=== PATIENT | female | born 1985 | race Caucasian/White ===

== ENCOUNTER → 2019-01-22 | Outpatient (CLI) | payer BC, OTHER | END | disposition home or self-care (01) | LOC: LABWHC1 15:24 | PROVIDERS: ATTEND Obstetrics & Gynecology | DX: O26.819 Pregnancy related exhaustion and fatigue, unspecified trimester (principal); Z3A.00 Weeks of gestation of pregnancy not specified | CPT/HCPCS: 36415; 84702 ==

== ENCOUNTER → 2019-01-26 | Outpatient (CLI) | payer BC, OTHER | LOC: LABWHC1 15:50 | PROVIDERS: ATTEND Obstetrics & Gynecology | DX: O26.819 Pregnancy related exhaustion and fatigue, unspecified trimester (principal); Z3A.00 Weeks of gestation of pregnancy not specified | CPT/HCPCS: 36415; 84702 ==

== ENCOUNTER → 2019-02-03 | Outpatient (CLI) | payer BC, OTHER | LOC: LABWHC1 11:49 | PROVIDERS: ATTEND Obstetrics & Gynecology | DX: O03.9 Complete or unspecified spontaneous abortion without complication (principal); R53.83 Other fatigue | CPT/HCPCS: 36415; 84702 ==

== ENCOUNTER → 2019-11-27 | Outpatient (CLI) | payer BC, OTHER | END | disposition home or self-care (01) | LOC: LABWHC1 07:45 | PROVIDERS: ATTEND Obstetrics & Gynecology | DX: O20.0 Threatened abortion (principal) | CPT/HCPCS: 36415; 84702 ==

== ENCOUNTER → 2019-12-03 | Outpatient (CLI) | payer BC, OTHER | END | disposition home or self-care (01) | LOC: LABWHC1 17:04 | PROVIDERS: ATTEND Obstetrics & Gynecology | DX: O02.1 Missed abortion (principal) | CPT/HCPCS: 36415; 84702 ==

== ENCOUNTER → 2019-12-10 | Outpatient (CLI) | payer BC, OTHER | END | disposition home or self-care (01) | LOC: LABWHC1 17:09 | PROVIDERS: ATTEND Obstetrics & Gynecology | DX: O02.1 Missed abortion (principal); Z3A.00 Weeks of gestation of pregnancy not specified | CPT/HCPCS: 36415; 84702 ==

== ENCOUNTER → 2019-12-17 | Outpatient (CLI) | payer BC, OTHER | END | disposition home or self-care (01) | LOC: LABWHC1 17:18 | PROVIDERS: ATTEND Obstetrics & Gynecology | DX: O03.9 Complete or unspecified spontaneous abortion without complication (principal) | CPT/HCPCS: 36415; 84702 ==

== ENCOUNTER → 2019-12-24 | Outpatient (CLI) | payer BC, OTHER | END | disposition home or self-care (01) | LOC: LABWHC1 17:27 | PROVIDERS: ATTEND Obstetrics & Gynecology | DX: O03.9 Complete or unspecified spontaneous abortion without complication (principal) | CPT/HCPCS: 36415; 84702 ==

== ENCOUNTER → 2019-12-31 | Outpatient (CLI) | payer BC, OTHER | END | disposition home or self-care (01) | LOC: LABWHC1 15:52 | PROVIDERS: ATTEND Obstetrics & Gynecology | DX: O03.9 Complete or unspecified spontaneous abortion without complication (principal) | CPT/HCPCS: 36415; 84702 ==

== ENCOUNTER → 2020-01-07 | Outpatient (CLI) | payer BC, OTHER | END | disposition home or self-care (01) | LOC: LABWHC1 17:13 | PROVIDERS: ATTEND Obstetrics & Gynecology | DX: O03.9 Complete or unspecified spontaneous abortion without complication (principal) | CPT/HCPCS: 36415; 84702 ==

== ENCOUNTER → 2020-01-21 | Outpatient (CLI) | payer BC, OTHER ==
[2020-01-21 23:16] LABS: Prolactin 4.5 ng/mL (2.8-29.2)
[2020-01-21 23:17] LABS: Estradiol 59.2 pg/mL; Follicle Stimulating Hormone 9.2 mIU/mL; Luteinizing Hormone 4.5 mIU/mL; T4, Free (Free Thyroxine) 1.4 ng/dL (0.80-1.80)
[2020-01-21 23:37] LABS: Progesterone 0.7 ng/mL
[2020-01-22 06:55] LABS: Cardiolipin Ab IgG Interp NEGATIVE (NEGATIVE); Cardiolipin Ab IgM Interp NEGATIVE (NEGATIVE); Cardiolipin IgM Antibody 0.6 U/mL
[2020-01-22 07:02] LABS: Cardiolipin IgA Antibody <0.5 U/mL
== END | disposition home or self-care (01) ==
LOC: LABWHC1 17:19
PROVIDERS: ATTEND Obstetrics & Gynecology
DX: N96 Recurrent pregnancy loss (principal)
CPT/HCPCS: 36415; 81241; 82670; 83001; 83002; 84144; 84146; 84432; 84439; 84443; 84481; 85613; 85730; 86147; 86800

== ENCOUNTER → 2021-03-30 | Outpatient (CLI) | payer BC, OTHER ==
--- NOTE | 2021-03-30 12:16 | US ---
EXAMINATION TYPE: US OB BPP wo non-stress DATE OF EXAM: 03/30/2021 COMPARISON: NONE CLINICAL HISTORY: O09.51x Maternal age. BPP EXAM PERFORMED: Transabdominal (TA) BPP PARAMETERS: PRESENTATION: Vertex HEART RATE: 147 bpm RHYTHM: Normal YURY: 14.2 DIAPHRAGM IMAGED: Yes BPP SCORIN. Breathin (1 episode of breathing of 30 second duration in 30 minutes of scanning time) 2. Movement: 2 (at least 3 discrete body movements in 30 minutes) 3. Tone: 2 (1 episode of active flexion/extension of limb) 4. YURY: 2 (YURY index > 5cm) TOTAL SCORE: 8 / 8 IMPRESSION: As above. Normal study.
== END | disposition home or self-care (01) ==
LOC: RADUSWWP 11:42
PROVIDERS: ATTEND Obstetrics & Gynecology
DX: O09.529 Supervision of elderly multigravida, unspecified trimester (principal); Z3A.00 Weeks of gestation of pregnancy not specified
CPT/HCPCS: 76819

== ENCOUNTER 2021-04-13 06:15 | Inpatient (IN) | payer BC, OTHER ==
[2021-04-13] MEDS ORDERED: METHYLERGONOVINE 0.2 MG/ML 1 ML AMP IM PRN (06:34)
[2021-04-13] MEDS ORDERED: LIDOCAINE 0.5% (PF) 5 MG/ML (50 ML SDV) SQ PRN (06:34)
[2021-04-13] MEDS ORDERED: CARBOPROST TROMETHAMINE 250 MCG/ML 1 ML AMP IM PRN (06:34)
[2021-04-13] MEDS ORDERED: TERBUTALINE 1 MG/ML VIAL SQ PRN (06:34)
[2021-04-13] MEDS ORDERED: OXYTOCIN 10 UNIT/ML 1 ML VIAL IM PRN (06:34)
[2021-04-13] MEDS ORDERED: OXYTOCIN 30 UNITS/500 ML NS 30 UNIT in SALINE 1 500ML.BAG IV SCH ×2 (06:45→11:30)
[2021-04-13] MEDS: LACTATED RINGERS 1,000 ML IV SCH ×2 (06:51→09:52)
[2021-04-13 07:10] LABS: Basophils % (A) 0 %; Eosinophils # (A) 0.1 k/uL (0-0.7); Eosinophils % (A) 1 %; HCT 37.6 % (34.0-46.0); HGB 13.1 gm/dL (11.4-16.0); Lymphocytes # (A) 1.6 k/uL (1.0-4.8); Lymphocytes % (A) 17 %; MCHC 34.8 g/dL (31.0-37.0); MCV 86.3 fL (80.0-100.0); Mean Platelet Volume 7.1; Monocytes # (A) 0.7 k/uL (0-1.0); Monocytes % (A) 7 %; Neutrophils # (A) 7.2 k/uL (1.3-7.7); Neutrophils % (A) 73 %; Platelet Count 210 k/uL (150-450); RBC 4.36 m/uL (3.80-5.40); RDW 13.7 % (11.5-15.5); WBC 9.9 k/uL (3.8-10.6)
[2021-04-13] MEDS ORDERED: BUTORPHANOL 1 MG/ML 1 ML VIAL IV PRN (08:02)
[2021-04-13] MEDS ORDERED: SODIUM CHLORIDE 0.9% 100 ML BAG ONE (09:31)
[2021-04-13] MEDS ORDERED: fentaNYL (PF) 50 MCG/ML 5 ML AMP ONE (09:31)
[2021-04-13] MEDS ORDERED: ROPIVACAINE 5MG/ML 20ML VIAL ONE (09:31)
[2021-04-13] MEDS ORDERED: diphenhydrAMINE 25 MG CAP PO PRN (11:21)
[2021-04-13] MEDS ORDERED: diphenhydrAMINE 50 MG CAP PO PRN (11:21)
[2021-04-13] MEDS ORDERED: BENZOCAINE/MENTHOL SPRAY 1 GM/SPRAY AEROSOL TOPICAL PRN (11:21)
[2021-04-13] MEDS ORDERED: ZOLPIDEM 5 MG TAB PO PRN (11:21)
[2021-04-13] MEDS ORDERED: HYDROCORTISONE 2.5% RECTAL CREAM 30 GM TUBE RECTAL PRN (11:21)
[2021-04-13] MEDS ORDERED: ACETAMINOPHEN TAB 325 MG TAB PO PRN (11:21)
[2021-04-13] MEDS ORDERED: SIMETHICONE 80 MG CHEWABLE PO PRN (11:21)
[2021-04-13] MEDS ORDERED: LANOLIN CREAM 5 GM TUBE TOPICAL PRN (11:21)
--- NOTE | 2021-04-13 11:45 | P.HPOB ---
History of Present Illness H&P Date: 04/13/21 Chief Complaint: Intrauterine at term: Induction of labor Puja is a 35-year-old at 39 weeks gestation who arrives for induction of labor. Her course other than advanced maternal age has been unremarkable and she is feeling well at this time. In fact she is already chad and dilated 4 to half centimeters. Likely she is in early labor. Pitocin augmentation of labor will be performed and clear fluid is noted on artificial rupture of membranes. She plans to use an epidural for analgesia. All the other questions are answered for her at this time. Pertinent labs include A+ blood type, Rh antibody was negative, rubella is immune, hepatitis B surface antigen and group B strep were both negative. A category 1 tracing is noted. Past Medical History Past Medical History: No Reported History History of Any Multi-Drug Resistant Organisms: None Reported Past Surgical History: No Surgical Hx Reported Past Anesthesia/Blood Transfusion Reactions: No Reported Reaction Past Psychological History: No Psychological Hx Reported Smoking Status: Never smoker Past Alcohol Use History: None Reported Past Drug Use History: None Reported - Past Family History Mother Additional Family Medical History / Comment(s): collapsed lungs Medications and Allergies Home Medications Medication Instructions Recorded Confirmed Type Aspirin [Adult Low Dose Aspirin EC] 1 tab PO DAILY 04/13/21 04/13/21 History Pnv,Calcium 72/Iron/Folic Acid 1 tab PO DAILY 04/13/21 04/13/21 History [ Plus Tablet] Allergies Allergy/AdvReac Type Severity Reaction Status Date / Time Penicillins Allergy Rash/Hives Verified 04/13/21 06:32 Cephalosporins AdvReac Unknown Verified 04/13/21 06:32 Childhood Exam Osteopathic Statement: *. No significant issues noted on an osteopathic structural exam other than those noted in the History and Physical/Consult. Vital Signs Temp Pulse Resp BP 04/13/21 06:29 97.9 F 96 16 119/82 Intake and Output 04/12/21 04/13/21 04/13/21 22:59 06:59 14:59 Intake Total 4 Balance 4 Intake: Intake, IV Titration 4 Amount Oxytocin 30 Units/500 ml 4 Ns 30 unit In Saline 1 500ml.bag @ Per Protocol IV .Q0M [facility] Rx#:[id number] Other: Weight 96.615 kg - OBG Physical Exam Breast: both: normal (no masses) Abdomen: bowel sounds normal, no diffuse tenderness, no bruit present, no guarding noted, no hepatomegaly, no splenomegaly, no mass Vulva: both: normal Vagina: normal moisture, no discharge Cervix: no lesion, no discharge Uterus: normal size, normal contour Adnexa: both: normal Anus/Rectum: normal perianal skin, no rectal mass, no hemorrhoids, heme negative Results Result Diagrams: 04/13/21 06:50
--- NOTE | 2021-04-13 11:46 | P.PROBDLV ---
Vaginal Delivery Note - . Vaginal Delivery Note: Puja progressed complete and pushing with spontaneous vaginal delivery of a viable male over an intact perineum from left occiput anterior position. Immediately upon delivery of the head the head was noted to retract back onto the perineum verifying shoulder dystocia. A nuchal cord 1 was also noted and was very tight unable to be reduced. With one gentle attempt at delivery of the anterior shoulder there was no movement of the baby and therefore this process was quickly abandoned. At this point I took my right hand and reached deep into the back of the vagina and grasped the inferior axilla. Once we were under the arm pit we are able to rotate a counterclockwise direction and free the anterior shoulder without difficulty with the patient in a steep Tania position. Once both shoulders were cleared were easily deliver the baby mouth nares were then bulb suctioned and baby was placed on mother's abdomen where the umbilical course clamped cut usual fashion an nursery personnel was present to assume care. Placenta was then delivered intact and Pitocin was added to the IV. score 7 and 8 at one and 5 minutes respectively and the weight was 8 lbs. 6 oz. Both mother and baby are currently stable following delivery. Shoulder dystocia noted: Tania position and delivery of posterior shoulder were affected release maneuvers
[2021-04-13] MEDS: IBUPROFEN 600 MG TAB PO SCH ×2 (11:53→18:22)
[2021-04-13 13:58] VITALS: RESP 16
[2021-04-13] MEDS: SENNOSIDES-DOCUSATE SODIUM 1 EACH TAB PO SCH (20:00)
[2021-04-14 00:25] VITALS: TEMP 97.7
[2021-04-14] MEDS: SENNOSIDES-DOCUSATE SODIUM 1 EACH TAB PO SCH (07:33)
[2021-04-14] MEDS: IBUPROFEN 600 MG TAB PO SCH ×2 (07:33)
[2021-04-14 07:34] LABS: Basophils # (A) 0.1 k/uL (0-0.2); Basophils % (A) 0 %; Eosinophils # (A) 0.3 k/uL (0-0.7); Eosinophils % (A) 3 %; HCT 34.7 % (34.0-46.0); HGB 11.6 gm/dL (11.4-16.0); Lymphocytes # (A) 2.3 k/uL (1.0-4.8); Lymphocytes % (A) 21 %; MCH 29.6 pg (25.0-35.0); MCHC 33.5 g/dL (31.0-37.0); MCV 88.2 fL (80.0-100.0); Mean Platelet Volume 7.4; Monocytes # (A) 0.9 k/uL (0-1.0); Monocytes % (A) 8 %; Neutrophils # (A) 6.9 k/uL (1.3-7.7); Neutrophils % (A) 65 %; Platelet Count 216 k/uL (150-450); RBC 3.93 m/uL (3.80-5.40); RDW 13.8 % (11.5-15.5); WBC 10.6 k/uL (3.8-10.6)
[2021-04-14 07:39] VITALS: BP 97/56; PULSE 78
--- NOTE | 2021-04-14 09:04 | P.DS ---
Providers Date of admission: 04/13/21 06:15 Expected date of discharge: 04/14/21 Attending physician: Jose Luis Whittington Primary care physician: Stated None Hospital Course: Puja is doing very well day 1. She is ambulating, voiding and tolerating her diet. She voices no complaints. Vital signs are stable and afebrile. Heart regular, lungs clear, extremities are without pain. Her abdomen is soft, uterus is firm, lochia is reported light. Assessment day 1. Plan discharged home follow up with me in 6 weeks. Discharge instructions were thoroughly reviewed and all the questions are answered for her prior to discharge. Motrin provided to the pharmacy. Patient Condition at Discharge: Good Plan - Discharge Summary New Discharge Prescriptions: New Ibuprofen [Motrin] 600 mg PO Q6HR PRN #30 tab PRN Reason: Pain No Action Aspirin [Adult Low Dose Aspirin EC] 1 tab PO DAILY Pnv,Calcium 72/Iron/Folic Acid [ Plus Tablet] 1 tab PO DAILY Discharge Medication List Aspirin [Adult Low Dose Aspirin EC] 1 tab PO DAILY 04/13/21 [History] Pnv,Calcium 72/Iron/Folic Acid [ Plus Tablet] 1 tab PO DAILY 04/13/21 [History] Ibuprofen [Motrin] 600 mg PO Q6HR PRN #30 tab 04/14/21 [Rx] Follow up Appointment(s)/Referral(s): Jose Luis Whittington DO [Doctor of Osteopathic Medicine] - 05/26/21 11:00 am Activity/Diet/Wound Care/Special Instructions: No heavy lifting, limit stairs and driving, and pelvic rest. If any high temperatures, heavy bleeding, or severe pain call my office Discharge Disposition: HOME SELF-CARE
== END 2021-04-14 14:02 | disposition home or self-care (01) | DRG 807 ==
LOC: 4FBP 06:15
PROVIDERS: ADMIT Obstetrics & Gynecology; ATTEND Obstetrics & Gynecology
PROC: 10E0XZZ Delivery of Products of Conception, External Approach (ICD-10-PCS; principal; 2021-04-13)
DX: O69.81X0 Labor and delivery complicated by cord around neck, without compression, not applicable or unspecified (principal); Z37.0 Single live birth; O66.0 Obstructed labor due to shoulder dystocia; Z3A.39 39 weeks gestation of pregnancy; Z79.82 Long term (current) use of aspirin
CPT/HCPCS: 85025; 86850; 86900; 86901